=== PATIENT | female | born 1990 | race Caucasian/White ===

== ENCOUNTER → 2016-04-03 | Outpatient (CLI) | payer OTHER ==
[~2016-04-03] MED LIST: LEVO50TA6 PO
== END | disposition home or self-care (01) ==
LOC: C.LAB 15:23
PROVIDERS: ATTEND Family Medicine
DX: E03.9 Hypothyroidism, unspecified (principal)

== ENCOUNTER → 2016-07-23 | Outpatient (CLI) | payer OTHER ==
[2016-07-23 15:04] LABS: PROLACTIN 13.82 ng/mL
[2016-07-23 15:05] LABS: CALCULATED INSULIN SENSITIVITY 0.364; GLUCOSE LOG 1.9243; INSULIN FASTING 6.7 mU/L (3-25); INSULIN LOG 0.8261
[2016-07-23 15:06] LABS: THYROID STIMULATING HORMONE 13.2 uIu/ml (0.300-4.500)
== END | disposition home or self-care (01) ==
LOC: C.LAB1850 13:00
PROVIDERS: ATTEND Obstetrics & Gynecology
DX: Z31.41 Encounter for fertility testing (principal); N91.5 Oligomenorrhea, unspecified

== ENCOUNTER → 2016-07-28 | Outpatient (CLI) | payer OTHER | END | disposition home or self-care (01) | LOC: C.PAPS 07:54 | PROVIDERS: ATTEND Physician Assistant | DX: Z12.4 Encounter for screening for malignant neoplasm of cervix (principal); Z11.51 Encounter for screening for human papillomavirus (HPV) ==

== ENCOUNTER → 2016-10-21 | Outpatient (CLI) | payer OTHER ==
[2016-10-21 12:41] LABS: CHOLESTEROL/HDL RATIO 2.8; THYROID STIMULATING HORMONE 0.408 uIu/ml (0.300-4.500)
== END | disposition home or self-care (01) ==
LOC: C.LAB 11:24
PROVIDERS: ATTEND Family Medicine
DX: Z00.00 Encounter for general adult medical examination without abnormal findings (principal); E03.9 Hypothyroidism, unspecified

== ENCOUNTER → 2017-03-05 | Outpatient (CLI) | payer OTHER ==
[~2017-03-05] MED LIST changes: +LEVO100T7 PO; +PRENTAB26 PO
== END | disposition home or self-care (01) ==
LOC: C.LABSPEC 13:26
PROVIDERS: ATTEND Obstetrics & Gynecology
DX: O09.00 Supervision of pregnancy with history of infertility, unspecified trimester (principal)

== ENCOUNTER → 2017-03-11 | Outpatient (CLI) | payer OTHER ==
[~2017-03-11] MED LIST changes: -LEVO100T7 PO; -PRENTAB26 PO
[2017-03-11 14:28] LABS: BASO % 0.2 %; BASO ABS # 0.02 K/uL (0-0.2); COMPLETE YES; EOS % 0.3 %; HEMATOCRIT 38.1 % (37-47); IG% 0.3 %; LYMPH % 22.6 %; LYMPH ABS # 2.37 K/uL (1.2-3.4); MEAN CELL VOLUME 90.1 fL (80-100); MEAN CORPUSCULAR HGB CONC 33.3 g/dl (32-36); MEAN PLATELET VOLUME 11.1 fL (7.4-10.4); MONO % 5.3 %; NEUT % 71.3 %; PLATELET COUNT 200 K/uL (130-400); RED BLOOD COUNT 4.23 M/uL (4.2-5.4); WHITE BLOOD COUNT 10.47 K/uL (4.8-10.8)
[2017-03-11 15:48] LABS: THYROID STIMULATING HORMONE 2.41 uIu/ml (0.300-4.500)
[2017-03-16 07:23] LABS: CHLAMYDIA TRACH RNA*** NOT DETECTED (NOT DETECTED); GC (NEIS GONORRHOEAE)RNA** NOT DETECTED (NOT DETECTED)
== END | disposition home or self-care (01) ==
LOC: C.LAB1850 13:07
PROVIDERS: ATTEND Obstetrics & Gynecology
DX: Z34.01 Encounter for supervision of normal first pregnancy, first trimester (principal); E03.9 Hypothyroidism, unspecified

== ENCOUNTER 2017-04-01 13:57 | Emergency (ER) | payer OTHER ==
[~2017-04-01] VITALS: Ht 165.1 cm; Wt 77.9 kg
[2017-04-01 14:14] VITALS: TEMP 36.9; Ht 165.1 cm; Wt 77.9 kg
[2017-04-01] MEDS ORDERED: LEVO100T7 PO (17:24)
[2017-04-01] MEDS ORDERED: PRENTAB26 PO (17:24)
[2017-04-01 17:30] LABS: BASO % 0.1 %; BASO ABS # 0.01 K/uL (0-0.2); EOS % 0.6 %; EOS ABS # 0.07 K/uL (0-0.5); HEMATOCRIT 35.5 % (37-47); HEMOGLOBIN 11.9 g/dL (12.0-16.0); IG# 0.04 K/uL (0.00-0.02); LYMPH % 19.9 %; LYMPH ABS # 2.41 K/uL (1.2-3.4); MEAN CELL VOLUME 90.6 fL (80-100); MEAN CORPUSCULAR HEMOGLOBIN 30.4 pg (25-34); MEAN CORPUSCULAR HGB CONC 33.5 g/dl (32-36); MEAN PLATELET VOLUME 10.4 fL (7.4-10.4); MONO % 4.5 %; MONO ABS # 0.54 K/uL (0.11-0.59); NEUT % 74.6 %; NEUT ABS # 9.03 K/uL (1.4-6.5); PLATELET COUNT 192 K/uL (130-400); RED CELL DISTRIBUTION WIDTH CV 13.2 % (11.5-14.5); RED CELL DISTRIBUTION WIDTH SD 43.4 fL (36.4-46.3)
[2017-04-01 17:57] LABS: ALBUMIN 3.7 gm/dl (3.4-5.0); CALCIUM 8.7 mg/dl (8.5-10.1); CREATININE 0.62 mg/dl (0.60-1.20); POTASSIUM 3.7 mmol/L (3.5-5.1)
[2017-04-01 17:59] LABS: TOTAL PROTEIN 7.8 gm/dl (6.4-8.2)
--- NOTE | 2017-04-01 18:12 | DIAGNOSTIC IMAGING REPORT ---
ABDOMINAL ULTRASOUND, RIGHT UPPER QUADRANT HISTORY: Generalized abdominal pain.. COMPARISON: None. FINDINGS: Pancreas: Obscured by overlying bowel gas. Liver: Unremarkable. Gallbladder: No gallbladder wall thickening. No gallstones. CBD: 4 mm. Right kidney: No hydronephrosis. A 4 mm stone identified within the right kidney. IMPRESSION: 1. Normal gallbladder. No gallstones. 2. Right-sided nephrolithiasis. No hydronephrosis. 3. The pancreas was by overlying bowel gas. Electronically signed by: Mic Campos M.D. 04/01/2017 6:11 PM Dictated Date/Time: 04/01/2017 6:09 PM
--- NOTE | 2017-04-01 18:15 | DIAGNOSTIC IMAGING REPORT ---
ULTRASOUND OF THE GRAVID UTERUS AND PELVIS CLINICAL HISTORY: Generalized abdominal pain. . COMPARISON STUDY: Pelvic ultrasound dated 03/19/2017. TECHNIQUE: Real-time, grayscale, and color flow sonography of the gravid uterus and pelvis is performed transabdominally. Images are reviewed in the transverse and longitudinal planes. FINDINGS: Uterus: The uterus is normal in size and echotexture, measuring 10.2 x 7.5 x 8.7 cm. The cervix appears closed and measures 4.0 cm and length. Gestation: There is a single live uterine gestation with estimated heart rate of 171 bpm. The crown-rump length measures 4.20 cm, corresponding to an estimated age of 11 weeks 1 day. This is concordant with the mean gestational sac diameter of 5.40 cm, which corresponds to an estimated age of 11 weeks 2 days. Ovaries: The ovaries were not well visualized. Pelvis: There is no free fluid in the cul-de-sac. No concerning adnexal lesion is seen. IMPRESSION: 1. There is a single live uterine gestation with an estimated age of 11 weeks 1 day by crown-rump length measurement. 2. No adnexal abnormality is seen. Electronically signed by: Guillermo Alarcon M.D. 04/01/2017 6:14 PM Dictated Date/Time: 04/01/2017 6:11 PM
[2017-04-01 18:24] VITALS: BP 130/86; PULSE 80; O2SAT 100
--- NOTE | 2017-04-01 18:26 | EMERGENCY ROOM VISIT NOTE ---
History First contact with patient: 16:34 Chief Complaint: ABDOMINAL PAIN Stated Complaint: TIGHTNESS IN ABD, 11 WKS PREGANANT Nursing Triage Summary: Pt c/o upper abd tightness since this morning. denies n/v/d. pt is 11 weeks pregant. Hx of kidney stone. denies urinary syptoms. History of Present Illness The patient is a 26 year old female who presents to the Emergency Room via private vehicle with complaints of "tightness in the abdomen, a little weeks ". The patient states that this morning around 7 AM she notes upper quadrant abdominal tenderness, more pronounced on the right. She states that the pain is better with sitting and worse with standing. It worsened today after eating at [employer]. She notes that she is 11 weeks . She does have a history of kidney stone on the right. She notes no vaginal bleeding. There is no nausea, vomiting or diarrhea. She rates her overall pain this time as a 5/10. She denies any urinary symptoms. There is no chest pain or shortness of breath. She also notes some constipation throughout her so far. She also notes a history of reflux but this feels different. Review of Systems A complete 10-point Review of Systems was discussed with the patient, with pertinent positives and negatives listed in the History of Present Illness. All remaining Review of Systems questions can be considered negative unless otherwise specified. Past Medical/Surgical History Medical Problems: (1) Ganglion cyst Family History Patient reports no known family medical history. Social History Smoking Status: Never Smoker Alcohol Use: occasionally Drug Use: none Marital Status: in relationship Occupation Status: employed Current/Historical Medications Scheduled Levothyroxine Sodium (Levothyroxine Sodium), 100 MCG PO DAILY Multivit/Min/Iron/Fol Ac/Pren ( Vitamin), 1 TAB PO DAILY Physical Exam Vital Signs Date Time Temp Pulse Resp B/P (MAP) Pulse Ox O2 Delivery O2 Flow Rate FiO2 04/01/17 18:24 80 16 130/86 100 Room Air 04/01/17 14:14 36.9 94 18 121/78 100 Room Air Physical Exam VITAL SIGNS - Vital signs and nursing notes were reviewed. Stable. GENERAL -26-year-old female appearing her stated age who is in no acute distress. Communicates well with provider and answers questions appropriately. SKIN - Without rashes. No petechial rashes. HEAD - NC/AT. LUNGS - Chest wall symmetric without accessory muscle use, intercostals retractions, or central cyanosis. Normal vesicular breath sounds CTA B/L. No wheezes, rales, or rhonchi appreciated. CARDIAC - RRR with S1/S2. No murmur, rubs, or gallops appreciated. ABDOMEN - Abdominal contour normal without pulsations or visible masses. BS normoactive all four quadrants. Slight right upper quadrant abdominal tenderness noted. No palpable masses, hepatosplenomegaly, or ascites noted. Medical Decision & Procedures ER Provider Diagnostic Interpretation: [~ rep ct add3]] ULTRASOUND OF THE GRAVID UTERUS AND PELVIS CLINICAL HISTORY: Generalized abdominal pain. . COMPARISON STUDY: Pelvic ultrasound dated 03/19/2017. TECHNIQUE: Real-time, grayscale, and color flow sonography of the gravid uterus and pelvis is performed transabdominally. Images are reviewed in the transverse and longitudinal planes. FINDINGS: Uterus: The uterus is normal in size and echotexture, measuring 10.2 x 7.5 x 8.7 cm. The cervix appears closed and measures 4.0 cm and length. Gestation: There is a single live uterine gestation with estimated heart rate of 171 bpm. The crown-rump length measures 4.20 cm, corresponding to an estimated age of 11 weeks 1 day. This is concordant with the mean gestational sac diameter of 5.40 cm, which corresponds to an estimated age of 11 weeks 2 days. Ovaries: The ovaries were not well visualized. Pelvis: There is no free fluid in the cul-de-sac. No concerning adnexal lesion is seen. IMPRESSION: 1. There is a single live uterine gestation with an estimated age of 11 weeks 1 day by crown-rump length measurement. 2. No adnexal abnormality is seen. Electronically signed by: Guillermo Alarcon M.D. 04/01/2017 6:14 PM Dictated Date/Time: 04/01/2017 6:11 PM ABDOMINAL ULTRASOUND, RIGHT UPPER QUADRANT HISTORY: Generalized abdominal pain.. COMPARISON: None. FINDINGS: Pancreas: Obscured by overlying bowel gas. Liver: Unremarkable. Gallbladder: No gallbladder wall thickening. No gallstones. CBD: 4 mm. Right kidney: No hydronephrosis. A 4 mm stone identified within the right kidney. IMPRESSION: 1. Normal gallbladder. No gallstones. 2. Right-sided nephrolithiasis. No hydronephrosis. 3. The pancreas was by overlying bowel gas. Electronically signed by: Mic Campos M.D. 04/01/2017 6:11 PM Dictated Date/Time: 04/01/2017 6:09 PM Laboratory Results 04/01/17 17:03 Red Blood Count 3.92, Mean Corpuscular Volume 90.6, Mean Corpuscular Hemoglobin 30.4, Mean Corpuscular Hemoglobin Concent 33.5, Mean Platelet Volume 10.4, Neutrophils (%) (Auto) 74.6, Lymphocytes (%) (Auto) 19.9, Monocytes (%) (Auto) 4.5, Eosinophils (%) (Auto) 0.6, Basophils (%) (Auto) 0.1, Neutrophils # (Auto) 9.03, Lymphocytes # (Auto) 2.41, Monocytes # (Auto) 0.54, Eosinophils # (Auto) 0.07, Basophils # (Auto) 0.01 04/01/17 17:03 Test 04/01/17 17:03 White Blood Count 12.10 K/uL (4.8-10.8) Red Blood Count 3.92 M/uL (4.2-5.4) Hemoglobin 11.9 g/dL (12.0-16.0) Hematocrit 35.5 % (37-47) Mean Corpuscular Volume 90.6 fL (80-100) Mean Corpuscular Hemoglobin 30.4 pg (25-34) Mean Corpuscular Hemoglobin Concent 33.5 g/dl (32-36) Platelet Count 192 K/uL (130-400) Mean Platelet Volume 10.4 fL (7.4-10.4) Neutrophils (%) (Auto) 74.6 % Lymphocytes (%) (Auto) 19.9 % Monocytes (%) (Auto) 4.5 % Eosinophils (%) (Auto) 0.6 % Basophils (%) (Auto) 0.1 % Neutrophils # (Auto) 9.03 K/uL (1.4-6.5) Lymphocytes # (Auto) 2.41 K/uL (1.2-3.4) Monocytes # (Auto) 0.54 K/uL (0.11-0.59) Eosinophils # (Auto) 0.07 K/uL (0-0.5) Basophils # (Auto) 0.01 K/uL (0-0.2) RDW Standard Deviation 43.4 fL (36.4-46.3) RDW Coefficient of Variation 13.2 % (11.5-14.5) Immature Granulocyte % (Auto) 0.3 % Immature Granulocyte # (Auto) 0.04 K/uL (0.00-0.02) Urine Color YELLOW Urine Appearance CLOUDY (CLEAR) Urine pH 6.0 (4.5-7.5) Urine Specific [place] 1.026 (1.000-1.030) Urine Protein NEG (NEG) Urine Glucose (UA) NEG (NEG) Urine Ketones TRACE (NEG) Urine Occult Blood NEG (NEG) Urine Nitrite NEG (NEG) Urine Bilirubin NEG (NEG) Urine Urobilinogen NEG (NEG) Urine Leukocyte Esterase NEG (NEG) Urine WBC (Auto) 5-10 /hpf (0-5) Urine RBC (Auto) 0-4 /hpf (0-4) Urine Hyaline Casts (Auto) 1-5 /lpf (0-5) Urine Epithelial Cells (Auto) >30 /lpf (0-5) Urine Bacteria (Auto) 1+ (NEG) Anion Gap 6.0 mmol/L (3-11) Est Creatinine Clear Calc Drug Dose 140.6 ml/min Estimated GFR () 143.2 Estimated GFR (Non- 123.6 BUN/Creatinine Ratio 10.4 (10-20) Calcium Level 8.7 mg/dl (8.5-10.1) Total Bilirubin 0.3 mg/dl (0.2-1) Aspartate Amino Transf (AST/SGOT) 6 U/L (15-37) Alanine Aminotransferase (ALT/SGPT) 11 U/L (12-78) Alkaline Phosphatase 60 U/L (45-117) Total Protein 7.8 gm/dl (6.4-8.2) Albumin 3.7 gm/dl (3.4-5.0) Globulin 4.1 gm/dl (2.5-4.0) Albumin/Globulin Ratio 0.9 (0.9-2) Lipase 105 U/L (73-393) Medical Decision Patient was seen and evaluated as above. She presents to us today with right upper quadrant abdominal pain. She is nontoxic on exam. Decision was made to obtain an ultrasound of the gallbladder as well as the fetus. These are both normal. She is reevaluated and the pain was nearly completely alleviated. She appears stable for outpatient management. There is no concerning leukocytosis or anemia. Although her white blood cell count is elevated at 12.10 believe this is likely secondary to . Hemoglobin is slightly low 11.9. No evidence of kidney or liver failure. Lipase normal. Urine does reveal urine bacteria without believe this is likely a contaminated sample. At this time she appears stable for outpatient management to closely follow with her family doctor and [facility]. She was educated upon management, educated upon worrisome symptoms which to return, had questions answered prior to discharge, and was discharged home in good condition. I favor this to be likely either reflux or gas related. In the evaluation and management of this patient following differential diagnoses were entertained: RI, PE, ascending cholangitis, cholangitis, cholecystitis, among others. Impression Primary Impression: Right upper quadrant abdominal pain Additional Impression: Anemia Departure Information Dispostion Home / Self-Care Condition GOOD Referrals Elva Claire MD (PCP) Patient Instructions My [facility] Additional Instructions You have been treated in the Emergency Department your Abdominal Pain. Laboratory results and imaging studies have ruled out any emergent causes for your abdominal pain which would warrant admission or surgery. For pain control, you can use the following [id number] medicines (if >12 yo): - Regular strength (325mg/tab) Tylenol (acetaminophen) 2 tabs every 4-6 hours as needed. Do not exceed 12 tablets in a 24 hour period. Avoid taking more than 3 grams (3000 mg) of Tylenol per day. This includes any other sources of acetaminophen you may take on a regular basis. Drink plenty of water and stay well hydrated. As with any trip to the Emergency Department, you should follow-up with your Primary Care Provider from today's visit please also call your [facility] to schedule follow-up as soon as possible. Return to the emergency department if your symptoms persist despite treatment plan outlined above or if the following symptoms occur: increased fevers, chills , worsening nausea/vomiting, blood in your stool or urine. Please return with any new/concerning symptoms. Problem Qualifiers
== END 2017-04-01 18:55 | disposition home or self-care (01) ==
LOC: C.EDB 14:00 → C.EDA 18:55
DX: O99.89 Other specified diseases and conditions complicating pregnancy, childbirth and the puerperium (principal); O99.011 Anemia complicating pregnancy, first trimester; R10.11 Right upper quadrant pain; D64.9 Anemia, unspecified; Z3A.11 11 weeks gestation of pregnancy; Z87.442 Personal history of urinary calculi; Z79.899 Other long term (current) drug therapy

== ENCOUNTER → 2017-04-08 | Outpatient (CLI) | payer OTHER ==
[~2017-04-08] MED LIST changes: +LEVO100T7 PO; -LEVO50TA6 PO; +PRENTAB26 PO
== END | disposition home or self-care (01) ==
LOC: C.LAB1850 16:45
PROVIDERS: ATTEND Obstetrics & Gynecology
DX: E03.9 Hypothyroidism, unspecified (principal)

== ENCOUNTER → 2017-05-06 | Outpatient (CLI) | payer OTHER | END | disposition home or self-care (01) | LOC: C.LAB 17:14 | PROVIDERS: ATTEND Obstetrics & Gynecology | DX: Z34.02 Encounter for supervision of normal first pregnancy, second trimester (principal) ==

== ENCOUNTER → 2017-06-03 | Outpatient (CLI) | payer OTHER | END | disposition home or self-care (01) | LOC: C.LAB1850 14:41 | PROVIDERS: ATTEND Obstetrics & Gynecology | DX: E03.9 Hypothyroidism, unspecified (principal) ==

== ENCOUNTER → 2017-07-29 | Outpatient (CLI) | payer OTHER | END | disposition home or self-care (01) | LOC: C.LAB 19:47 | PROVIDERS: ATTEND Obstetrics & Gynecology | DX: Z34.03 Encounter for supervision of normal first pregnancy, third trimester (principal) ==

== ENCOUNTER → 2017-07-29 | Outpatient (CLI) | payer OTHER ==
[2017-07-29 17:46] LABS: HEMATOCRIT 32.3 % (37-47); HEMOGLOBIN 10.6 g/dL (12.0-16.0)
== END | disposition home or self-care (01) ==
LOC: C.LAB1850 15:46
PROVIDERS: ATTEND Obstetrics & Gynecology
DX: Z34.03 Encounter for supervision of normal first pregnancy, third trimester (principal)

== ENCOUNTER 2017-10-16 05:51 | Inpatient (IN) | payer OTHER ==
[~2017-10-16] VITALS: Ht 165.1 cm; Wt 92.9 kg
[2017-10-26] MEDS ORDERED: LACTATED RINGER'S 1000ML 1,000 ML IV SCH ×2 (08:29→18:13)
[2017-10-26] MEDS ORDERED: LACTATED RINGER'S 1000ML 1,000 ML IV PRN (08:29)
[2017-10-26] MEDS ORDERED: LACTATED RINGER'S 1000ML 500 ML IV PRN ×2 (08:29→13:52)
[2017-10-26] MEDS ORDERED: PENICILLIN G POTASSIUM IV 3 MU in DEXTROSE 5% 100ML 100 ML IV PRN (08:30)
[2017-10-26] MEDS ORDERED: OXYTOCIN 30 UNITS/500ML NSS IV PRN ×2 (08:30→18:15)
[2017-10-26 08:49] VITALS: Ht 165.1 cm; Wt 92.9 kg
[2017-10-26 08:56] LABS: HEMATOCRIT 34.5 % (37-47); HEMOGLOBIN 10.8 g/dL (12.0-16.0); MEAN CELL VOLUME 91.3 fL (80-100); MEAN CORPUSCULAR HEMOGLOBIN 28.6 pg (25-34); MEAN CORPUSCULAR HGB CONC 31.3 g/dl (32-36); MEAN PLATELET VOLUME 11.6 fL (7.4-10.4); PLATELET COUNT 137 K/uL (130-400); RED CELL DISTRIBUTION WIDTH CV 15.4 % (11.5-14.5); WHITE BLOOD COUNT 9.92 K/uL (4.8-10.8)
[2017-10-26] MEDS ORDERED: PENICILLIN G POTASSIUM IV 6 MU in DEXTROSE 5% 250ML 250 ML IV ONE (09:00)
[2017-10-26] MEDS ORDERED: EpHEDrine SULFATE INJ 50 MG/ML AMP ONE (13:07)
[2017-10-26] MEDS ORDERED: FENTANYL CITRATE INJ 50 MCG/1 ML 2 ML VIAL ONE (13:07)
[2017-10-26] MEDS ORDERED: FENTANYL 2MCG/ML ROPIV 1.25MG/ML 100ML BAG ONE (13:08)
[2017-10-26] MEDS ORDERED: NALOXONE HCL INJ 1 MG in SODIUM CHLORIDE 0.9% 1000ML 1,000 ML IV PRN (13:52)
[2017-10-26] MEDS ORDERED: ONDANSETRON INJ 2 MG/ML 2 ML VIAL IV PRN (14:00)
[2017-10-26] MEDS ORDERED: EpHEDrine SULFATE INJ 50 MG/ML AMP IV PRN (14:00)
[2017-10-26] MEDS ORDERED: DiphenhydrAMINE HCL 50 MG/ML VIAL IV PRN (14:00)
[2017-10-26] MEDS ORDERED: NALBUPHINE HCL INJ 10 MG/ML 1ML AMP IV PRN (14:00)
[2017-10-26] MEDS ORDERED: NALOXONE HCL INJ 0.4 MG/1 ML VIAL/CARP IV PRN (14:00)
[2017-10-26] MEDS ORDERED: FENTANYL 2MCG/ML ROPIV 1.25MG/ML 100ML BAG EPI PRN (14:00)
[2017-10-26] MEDS ORDERED: DIPHTHERIA/TETANUS/PERTUSSIS 0.5 ML SYR/VIAL IM. ONE (18:15)
[2017-10-26] MEDS ORDERED: SUPERCREAM 0.870 % 15GM JAR EXT PRN (18:15)
[2017-10-26] MEDS ORDERED: BENZOCAINE 20% AER SPR 82.5 GM CAN EXT PRN (18:15)
[2017-10-26] MEDS ORDERED: LANOLIN OINT EXT PRN (18:15)
[2017-10-26] MEDS ORDERED: HYDROCORTISONE ACETATE 25 MG SUPP PR PRN (18:15)
[2017-10-26] MEDS ORDERED: OXYCODONE/ACETAMINOPHEN 5-325 TAB PO PRN (18:15)
[2017-10-26] MEDS ORDERED: ACETAMINOPHEN 325 MG TAB PO PRN (18:15)
--- NOTE | 2017-10-26 20:01 | DELIVERY SUMMARY ---
DATE OF OPERATION: 10/26/2017 PREOPERATIVE DIAGNOSES: 1. Mathew intrauterine of 41 plus weeks. 2. Induction of labor. 3. Group B streptococcus positive. POSTOPERATIVE DIAGNOSES: 1. Mathew intrauterine of 41 plus weeks. 2. Induction of labor. 3. Group B streptococcus positive. PROCEDURE: Spontaneous vaginal delivery and repair of periurethral and second degree laceration. SURGEON: Abby Sotomayor MD PAD TUFTER: None. ESTIMATED BLOOD LOSS: 300 mL. COMPLICATIONS: None. DISPOSITION: Stable to labor and delivery. DESCRIPTION OF PROCEDURE: Terrence Soliz was induced due to postdates . She reached complete dilation with an urge to push and a test to push went very well. So I gowned and stayed with the patient through her second stage of labor. She pushed very well, ultimately bringing head to and then to delivery. The right shoulder was anterior and the patient delivered the shoulders with no difficulty whatsoever followed by the remainder of the viable which was placed on the maternal abdomen. The cord was doubly clamped and cut by the FOB. The placenta delivered spontaneously and was intact with 3-vessel cord. There was noted to be a right periurethral laceration and a second degree laceration. A red rubber catheter was placed in the urethra after prep with Betadine to allow identification of the urethra. Periurethral laceration repair then proceeded with 3-0 Vicryl in a running locked manner. At the completion of repair, the red rubber catheter was withdrawn demonstrating that there are no sutures into or through disturbing the urethral tract. The second degree laceration was then repaired in the usual manner with 2-0 Vicryl including a crown suture to rebuild the perineal body and 3-0 Vicryl used to create a subcuticular closure at the perineal skin. Once this was all completed, the fundus was massaged and found to be firm, lochia was minimal and mother and were in stable condition, having tolerated delivery well. I attest to the content of the Intraoperative Record and any orders documented therein. Any exception s are noted below.
[2017-10-26] MEDS: DOCUSATE SODIUM 100 MG CAP PO SCH (20:35)
[2017-10-26] MEDS: IBUPROFEN 600 MG TAB PO PRN ×2 (20:35→23:48)
[2017-10-26 20:40] VITALS: BP 106/73; PULSE 87; TEMP 37
--- NOTE | 2017-10-26 20:56 | Anesthesia Procedure Note ---
Anesthesia Epidural Removal Nt Date & Time Oct 26, 2017 at 20:56 Vital Signs Pain Intensity: 5.0 Notes Mental Status: alert / awake / arousable, participated in evaluation Nausea / Vomiting: adequately controlled Pain: adequately controlled Airway Patency, RR, SpO2: stable & adequate BP & HR: stable & adequate Hydration State: stable & adequate Neuraxial Anesthesia: was administered Anesthetic Complications: no major complications apparent, pt satisfied with anesthetic care Epidural: removed without complications, with tip intact
[2017-10-26 23:25] VITALS: BP 101/64; PULSE 73; TEMP 36.9; O2SAT 98
[2017-10-27 03:00] VITALS: BP 109/70; PULSE 79; TEMP 36.9; O2SAT 98
[2017-10-27 06:36] LABS: HEMATOCRIT 28.4 % (37-47)
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
[2017-10-27] MEDS: DOCUSATE SODIUM 100 MG CAP PO SCH ×2 (08:14→20:21)
[2017-10-27] MEDS: FERROUS SULFATE 325 MG TAB PO SCH (08:15)
[2017-10-27] MEDS: PRENATAL VITAMIN TAB PO SCH (08:15)
[2017-10-27] MEDS: IBUPROFEN 600 MG TAB PO PRN ×3 (08:19→22:48)
[2017-10-27] MEDS: LEVOTHYROXINE 100 MCG TAB PO SCH (08:39)
[2017-10-27 12:35] VITALS: BP 107/71; PULSE 76; TEMP 36.9
[2017-10-27 16:20] VITALS: BP 99/66; PULSE 73; TEMP 36.8
[2017-10-27 23:55] VITALS: BP 101/64; PULSE 66; TEMP 36.6; O2SAT 98
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
--- NOTE | 2017-10-28 07:07 | Discharge Instructions ---
Discharge Instructions Date of Service Oct 28, 2017. Admission Reason for Admission: Induction Discharge Discharge Diagnosis / Problem: Discharge Goals Goal(s): Routine recovery after delivery Medications Continue Dispensed Medications: supercream, dermaplast, tucks Activity Recommendations Activity Limitations: per Instructions/Follow-up section . Instructions / Follow-Up Instructions / Follow-Up ACTIVITY RECOMMENDATIONS: * Gradual return to full activity over the next 2-3 weeks. * No lifting - nothing heavier than baby over the next 2-3 weeks. * Do not engage in vigorous exercise, sexual activity or sports until cleared by your physician. * Do not drive or operate any motorized equipment until cleared by your physician. * You may shower/bathe daily. MEDICATIONS: For discomfort or pain, you may use Acetaminophen (Tylenol), Ibuprofen (Advil), or Naproxen (Aleve) following the package directions. For constipation you may use Colace following the package directions. BREAST CARE: If you are not breast feeding: * Wear a supportive bra 24 hours a day for one to two weeks. * Avoid stimulating your breasts and nipples as much as possible during the first few weeks after delivery. * When taking a shower, have the warm water hit your back, not breasts. * When your breasts feel full, apply ice packs. Usually three to four times a day helps ease the discomfort. * Take a mild pain medication (Tylenol / Motrin) when you are uncomfortable. If breast feeding: * Use breast milk to lubricate nipples. Lansinoh cream may be used for sore nipples. You do not need to remove cream prior to breast feeding. If using a different brand of cream, check the label for directions regarding removal of cream prior to nursing. * Wear a supportive bra. * If having problems with breasts or breast feeding, call a edi consultant or your health care provider. EPISIOTOMY CARE: After delivery, if you have an episiotomy (stitches), the following steps will ease discomfort and aid healing. * For the first 24 hours after delivery, place ice packs next to your episiotomy to help reduce swelling. * After the first 24 hour-period, sitz baths, either portable or in the tub, are suggested. A shower with a shower arm sprayed over the episiotomy may be comforting. * Margie care should be done after each voiding and bowel movement. Squirt warm water from a plastic bottle over the perineum (region of the body between the anus and urinary opening) and pat dry. * Use Dermoplast to ease discomfort. Shake container. [place] directly over the episiotomy. Place a Tucks on a clean sanitary pad next to your episiotomy. SPECIAL CARE INSTRUCTIONS: When you are discharged from the hospital, it is important for you to follow the instructions listed below: * During the first week at home, you should be able to care for yourself and your baby. In addition, the usual light household activities are encouraged. * Limit your activities to the way you feel. Do not try to clean the house or move furniture. Be sensible. * If you actively engage in sports and have done so up until the time of your delivery, you may resume these activities as soon as you feel able. This may take up to one month or even longer. Use good judgment. * Continue to take your vitamins for at least six weeks after the of your baby. * Your diet need not be limited unless you were on a special diet before your delivery. Breast-feeding mothers need around 2500 calories per day and at least 64-80 ounces of fluid per day (8 to 10 glasses). * You should eat foods from the four major food groups. Crash diets or fad diets are to be avoided. Eating lean meats, fresh fruits and vegetables, low-fat dairy products, high fiber foods and a regular exercise program, will help you get back to your pre- weight without putting your health at risk. * Constipation is sometimes a problem after delivery. Take a mild laxative as needed. If breast feeding, Milk of Magnesia is acceptable to use. You may use a suppository or Fleets enema if no episiotomy. * A daily shower or tub bath is suggested. Be sure to thoroughly and gently dry the perineum. * A bloody vaginal discharge will usually continue until around four weeks post . A small amount of bleeding may continue for as long as six weeks. Vaginal discharge changes from the bright red bleeding after delivery to pink then brownish and finally yellowish-pink before becoming white and disappearing. * Bleeding may increase with activity. Your first period may come in 4-8 weeks. If you are breast feeding, your period may be delayed even longer. * Shirley (sex) can begin whenever both you and your partner feel comfortable and do not have any form of genital infection. It is recommended that you wait at least six weeks for internal and external healing to occur. If you have questions, please talk to your health care practitioner. A condom should be used to prevent infection and . * Foreplay, gentle intercourse and lubrication is very important the first several times to prevent pain. A water-based lubricant such as K-Y jelly or Astroglide may be used. * If you have RH negative blood and your baby is RH positive, you will receive RHOGAM by injection prior to discharge. The nurse will give you a card to keep with you that has the date and place that you received RHOGAM after delivery. * During your care, you had a Rubella screen done to check for the presence of rubella antibodies in your blood. If your test was negative, you will receive a Rubella vaccine prior to discharge. This vaccine may cause a fever, soreness at the injection site and flu-like symptoms. If these symptoms persist, notify your health care practitioner. is not advised for one month after a Rubella vaccine. * Verbalizes understanding of car seat law as reviewed with patient nursing. * Car Seat hand-out given and reviewed with patient by nursing. * Shaken baby information reviewed with patient by nursing. Call you doctor if: * Heavy bleeding (saturating several pads an hour) or passing clots the size of your fist. * A fever >101 degrees F (38.3 degrees C) on two occasions four hours apart and /or chills. * Unusual pain in the pelvic or vaginal areas. * "Baby Blues" lasting longer than two weeks. If you have any questions or concerns, call your health care practitioner at . FOLLOW UP VISIT: * Please call the office at to schedule a 6 week examination. It is important you keep this appointment. It is important for you to make arrangements for either yearly or twice yearly check-ups thereafter. Current Hospital Diet Patient's current hospital diet: Regular OB Diet Discharge Diet Recommended Diet: Regular OB Diet Pending Studies Studies pending at discharge: no Medical Emergencies . Who to Call and When: Medical Emergencies: If at any time you feel your situation is an emergency, please call 911 immediately. . Non-Emergent Contact Non-Emergency issues call your: Gas Load Dispatcher Call Non-Emergent contact if: temperature is above 100.5 . . "Provider Documentation" section prepared by Jose Ceja. . Resident Tracking Resident Involvement: Resident Care Provided Care Provided: Adult [facility]
[2017-10-28] MEDS: DOCUSATE SODIUM 100 MG CAP PO SCH (07:18)
[2017-10-28] MEDS: LEVOTHYROXINE 100 MCG TAB PO SCH (07:18)
[2017-10-28] MEDS: PRENATAL VITAMIN TAB PO SCH (07:18)
[2017-10-28] MEDS: FERROUS SULFATE 325 MG TAB PO SCH (07:18)
[2017-10-28 07:30] VITALS: BP 109/70; PULSE 60; TEMP 36.7; O2SAT 99
[2017-10-28] MEDS: IBUPROFEN 600 MG TAB PO PRN ×2 (08:08→12:09)
[2017-10-28 14:20] VITALS: BP_DIAS 70; PULSE 60; TEMP 36.7
== END 2017-10-28 14:40 | disposition home or self-care (01) | DRG 775 ==
LOC: C.LD 10-26 07:36 → C.OBG 10-26 20:33
PROVIDERS: ADMIT Obstetrics & Gynecology; ATTEND Obstetrics & Gynecology
PROC: 0KQM0ZZ Repair Perineum Muscle, Open Approach (ICD-10-PCS; principal; 2017-10-26)
PROC: 10E0XZZ Delivery of Products of Conception, External Approach (ICD-10-PCS; principal; 2017-10-26)
PROC: 10907ZC Drainage of Amniotic Fluid, Therapeutic from Products of Conception, Via Natural or Artificial Opening (ICD-10-PCS; principal; 2017-10-26)
PROC: 3E033VJ Introduction of Other Hormone into Peripheral Vein, Percutaneous Approach (ICD-10-PCS; principal; 2017-10-26)
DX: O48.0 Post-term pregnancy (principal); O99.824 Streptococcus B carrier state complicating childbirth; O70.1 Second degree perineal laceration during delivery; Z3A.41 41 weeks gestation of pregnancy; Z37.0 Single live birth

== ENCOUNTER 2017-10-23 12:26 | Outpatient (CLI) | payer OTHER | END 2017-10-23 13:30 | disposition home or self-care (01) | LOC: C.OPB 12:26 → C.LD 12:26 → C.OPB 13:30 | PROVIDERS: ATTEND Obstetrics & Gynecology | DX: O62.9 Abnormality of forces of labor, unspecified (principal); O09.519 Supervision of elderly primigravida, unspecified trimester; Z3A.00 Weeks of gestation of pregnancy not specified ==